=== PATIENT | female | born 1930 | race Caucasian/White ===

== ENCOUNTER 2018-05-06 13:51 | Emergency (ER) | payer MEDICARE ==
[~2018-05-06] VITALS: Ht 152.4 cm; Wt 48.1 kg
[2018-05-06] MEDS ORDERED: ACETAMINOPHEN/CODEINE 300-30 MG TABLET ONE (14:15)
[2018-05-06] MEDS ORDERED: ACETAMINOPHEN/CODEINE 300-30 MG TABLET PO ONE (14:15)
--- NOTE | 2018-05-06 14:17 | NUR ---
Pt out of ER for CT.
--- NOTE | 2018-05-06 16:07 | NUR ---
Patient discharged to home in stable conditon. Written and verbal after care instructions given. Patient verbalizes understanding of instructions.
== END 2018-05-06 16:08 | disposition home or self-care (01) ==
LOC: ER 13:53
DX: M54.5 Low back pain (principal); I10 Essential (primary) hypertension; E78.5 Hyperlipidemia, unspecified; Z88.2 Allergy status to sulfonamides
CPT/HCPCS: 72131; 72192; A4663